=== PATIENT | female | born 1980 | race Caucasian/White ===

== ENCOUNTER → 2018-01-02 10:11 | Outpatient (CLI) | payer OTHER, SELFPAY ==
[2018-01-02 12:16] LABS: Add Manual Diff / Slide Review NO; Basophils Percent Auto 0.4 % (0-2); Eosinophils Percent Auto 1.9 % (2-4); Hematocrit 33.7 % (36-46); Hemoglobin 11.4 g/dL (12.0-16.0); Lymphocytes Percent Auto 14.3 % (25-40); Mean Corpuscular HGB Conc 33.7 % (30-36); Mean Corpuscular Hemoglobin 28.6 PG (26-34); Mean Corpuscular Volume 84.7 fL (80-100); Monocytes Percent Auto 5.6 % (3-14); Neutrophils Absolute Auto 6000 /uL (3000-5900); Neutrophils Percent Auto 77.8 % (50-75); Platelet Count 169 X10^3/uL (150-400); Red Blood Cell Count 3.98 X10^6/uL (4.0-5.2); Red Cell Distribution Width 13.7 % (11.6-14.8); White Blood Cell Count 7.8 X10^3/uL (4.5-11.0)
[2018-01-02 13:12] LABS: GTT (PREG) 1 Hour PP 50gm Dose 112 mg/dL (76-139)
[2018-01-02 14:28] LABS: Appearance Urine UA CLEAR; Bilirubin Urine UA NEGATIVE (NEGATIVE); Color Urine UA YELLOW; Glucose Urine UA NEGATIVE (Negative); Ketones Urine UA NEGATIVE (NEGATIVE); Leukocyte Esterase Urine UA NEGATIVE (NEGATIVE); Nitrite Urine UA NEGATIVE (NEGATIVE); Occult Blood Urine UA NEGATIVE (Negative); Protein Urine UA NEGATIVE (Negative); Urobilinogen Urine UA 0.2 E.U./dL (0.2)
[2018-01-02 14:37] LABS: Culture Indicated Urine Cult Not Indicated; Urine Comments Microscopic Normal
[2018-01-02 17:14] LABS: HIV 1 and 2 Antibody NEGATIVE (NEGATIVE); Hep C Virus Ab w/Reflex Quant NEGATIVE s/c (NEGATIVE); Hepatitis B Surface Antigen NEGATIVE s/c (NEGATIVE); Rubella Antibody IgG 18.3 IU/mL (>15)
[2018-01-04 14:41] LABS: HSV 2 IGG AB < 0.90 index (< 0.90); HSV1IGG < 0.90 index (< 0.90)
[2018-01-10 11:48] LABS: Rapid Plasma Reagin NON REACTIVE
== END ==
PROVIDERS: PCP Specialist; Visit Provider Specialist
DX: Z3A.26 26 weeks gestation of pregnancy (principal); Z34.82 Encounter for supervision of other normal pregnancy, second trimester
CPT/HCPCS: 36415; 80055; 82950; 86850; 86900; 86901

== ENCOUNTER → 2018-03-01 16:45 | Outpatient (CLI) | payer OTHER, SELFPAY ==
[2018-03-02 12:48] LABS: Strep Grp B PCR POS for Grp B Strep
== END ==
PROVIDERS: Family Provider Specialist; PCP Specialist; Visit Provider Specialist
DX: Z34.83 Encounter for supervision of other normal pregnancy, third trimester (principal); Z3A.36 36 weeks gestation of pregnancy
CPT/HCPCS: 87653

== ENCOUNTER 2018-03-29 11:50 | Outpatient (CLI) | payer OTHER, SELFPAY ==
--- NOTE | 2018-03-29 12:37 | PM.OBTRLD ---
Visit Information Visit Information Date of evaluation: 03/29/18 Primary OB Provider: Jenifer Dillon Reason for Evaluation: Yes non-stress test Evaluation Evaluation Baseline heart rate: 140 Variability: Moderate (11-25) monitor accelerations: Present monitor decelerations: Absent Contraction Frequency (minutes): 0 Category of Tracing: I Diagnosis, Plan/Disposition Final Diagnosis (1) 40 weeks gestation of : Current Visit: Yes Status: Acute (2) Encounter for supervision of other normal , third trimester: Current Visit: Yes Status: Acute Plan/Disposition Plan: Reactive nonstress test. Follow-up with OB provider in 4 days.
== END 2018-03-29 12:35 | disposition home or self-care (01) ==
LOC: OB 04-03 15:47
PROVIDERS: Family Provider Specialist; PCP Specialist; Visit Provider Specialist
DX: Z34.83 Encounter for supervision of other normal pregnancy, third trimester (principal); Z3A.40 40 weeks gestation of pregnancy
CPT/HCPCS: 59025; G0378; G0379

== ENCOUNTER 2018-04-04 14:20 | Outpatient (CLI) | payer OTHER, SELFPAY ==
--- NOTE | 2018-04-04 14:59 | P.TNLD_ITS ---
Visit Information Visit Information Date of evaluation: 04/04/18 Primary OB Provider: Jenifer Dillon On-call OB Provider: Jovanna Patino Reason for Evaluation: Yes non-stress test non-stress test reason: other ( postdates) Evaluation Evaluation Baseline heart rate: 140 Variability: Moderate (11-25) monitor accelerations: Present monitor decelerations: Absent Contraction Frequency (minutes): 6 Uterine Contraction Intensity: Mild Category of Tracing: I Diagnosis, Plan/Disposition Final Diagnosis (1) Post-dates : Current Visit: Yes Status: Acute Plan/Disposition Plan: D/C to home [facility] Follow up 4 days for repeat NST
== END 2018-04-04 15:05 | disposition home or self-care (01) ==
LOC: OB 04-05 14:40
PROVIDERS: Family Provider Specialist; PCP Specialist; Visit Provider Obstetrics & Gynecology
DX: O48.0 Post-term pregnancy (principal); Z3A.40 40 weeks gestation of pregnancy
CPT/HCPCS: 59025; G0378; G0379

== ENCOUNTER 2018-04-08 14:06 | Outpatient (CLI) | payer OTHER, SELFPAY ==
--- NOTE | 2018-04-09 04:41 | PM.OBTRLD ---
Visit Information Visit Information Date of evaluation: 04/08/18 Primary OB Provider: Jenifer Dillon On-call OB Provider: Jovanna Patino Reason for Evaluation: Yes non-stress test non-stress test reason: other (Postdates) Evaluation Evaluation Baseline heart rate: 135 Variability: Moderate (11-25) monitor accelerations: Present monitor decelerations: Absent Contraction Frequency (minutes): 8 Uterine Contraction Intensity: Mild Category of Tracing: I Diagnosis, Plan/Disposition Final Diagnosis (1) 41 weeks gestation of : Current Visit: No Status: Acute Plan/Disposition Plan: Follow up with Dr. Dillon 04/09/18 [facility]
--- NOTE | 2018-04-09 04:44 | P.TNLD_ITS ---
Visit Information Visit Information Date of evaluation: 04/08/18 Primary OB Provider: Jenifer Dillon On-call OB Provider: Jovanna Patino Reason for Evaluation: Yes non-stress test non-stress test reason: other ( Postdates) Evaluation Evaluation Baseline heart rate: 135 Variability: Moderate (11-25) monitor accelerations: Present monitor decelerations: Absent Contraction Frequency (minutes): 8 Uterine Contraction Intensity: Mild Category of Tracing: I Diagnosis, Plan/Disposition Final Diagnosis (1) 41 weeks gestation of : Current Visit: No Status: Acute Plan/Disposition Plan: Follow up with Dr. Dillon 04/09/18 [facility]
== END 2018-04-08 14:50 | disposition home or self-care (01) ==
LOC: OB 04-09 14:29
PROVIDERS: Family Provider Specialist; PCP Specialist; Visit Provider Obstetrics & Gynecology
DX: O48.0 Post-term pregnancy (principal); Z3A.41 41 weeks gestation of pregnancy
CPT/HCPCS: 59025; G0378; G0379

== ENCOUNTER 2018-04-10 07:48 | Inpatient (IN) | payer OTHER, SELFPAY ==
[2018-04-10] MEDS: PENICILLIN G POTASSIUM 5,000,000 UNIT in DEXTROSE 5% IN WATER 250 ML IV (09:45)
--- NOTE | 2018-04-10 09:51 | PM.OBHP.1 ---
OB HPI Date/Time Date of admission: 04/10/18 Date Patient Seen: 04/10/18 Time Patient Seen: 09:51 History of Present Condition Chief complaint: OBS : 5 Para: 3 Estimated Date of Delivery: 03/29/18 Estimated Gestational Age (weeks): 41 Narrative: Hernandez Patel is a 38 year old female admitted in early labor. History of Present care: good care Dating criteria: LMP confirmed by 1st trimester US Ultrasounds: normal mid trimester US Obstetrical complications: none Medical complications: none Preadmission Labs Blood type: O (+) positive -: Antibody screen: negative, GBS status: positive, HBsAG: negative, HIV: negative, HSV 1: negative, HSV 2: negative and RPR/VDLR: negative -: Chlamydia screen: not detected and Gonorrhea screen: not detected -: Rubella: immune HCAB: negative 1 hr GTT: 112 Prior (ies) History: 12/14/2012 41 weeks 8 lb 6 oz female 02/24/2014 40 weeks 8 lb 1 oz female 04/27/2016 39 weeks 8 lb 5 oz male 2014 D and C for blighted ovum Evaluation Evaluation Baseline heart rate: 150 Variability: Moderate (11-25) monitor accelerations: Present monitor decelerations: Absent Contraction Frequency (minutes): 5 Uterine Contraction Intensity: Moderate Category of Tracing: I Cervical dilation (cm): 5 Cervical effacement (%): 80 station: -2 PFSH Medical History Anxiety (Chronic) Surgical History H/O dilation and curettage (Resolved) H/O shoulder surgery (Resolved) Social History Smoking Status: Never smoker second hand exposure: No substance use type: does not use Meds Allergies Allergy/AdvReac Type Severity Reaction Status Date / Time hydrocodone [HYDROCODONE] Allergy Intermediate Unverified 11/22/17 12:36 Review of Systems Review of Systems Patient has been having regular strong contractions. No rupture of membranes. She has noted good movement. No signs or symptoms of preeclampsia. All systems reviewed & are unremarkable except as noted in HPI and below Exam Vital Signs (past 8 hours): Blood pressure 135/71, temperature 97.7?, a pulse of 97 HEENT exam within normal limits. Lungs are clear to auscultation and percussion. Heart is regular rate and rhythm no S3-S4 or murmurs. Abdomen is soft and gravid. Extremities without edema and nontender. Manual OB Exam: dilated 6, effaced 75% and station -2 Uterus Location (Fundal Height): 39 Presentation: vertex Estimated Weight (lbs): 9 Assessment and Plan (1) 41 weeks gestation of : Current visit: No Status: Acute (2) Encounter for supervision of other normal , third trimester: Current visit: No Status: Acute Plan: Plan: Patient will receive IV penicillin for positive group B strep culture. Anticipate vaginal delivery.
[2018-04-10 10:03] LABS: Add Manual Diff / Slide Review NO; Basophils Percent Auto 0.3 % (0-2); Eosinophils Percent Auto 0.5 % (2-4); Hematocrit 32.1 % (36-46); Hemoglobin 10.4 g/dL (12.0-16.0); Lymphocytes Percent Auto 9.4 % (25-40); Mean Corpuscular HGB Conc 32.6 % (30-36); Mean Corpuscular Hemoglobin 24.8 PG (26-34); Monocytes Percent Auto 5.4 % (3-14); Neutrophils Absolute Auto 9200 /uL (3000-5900); Neutrophils Percent Auto 84.4 % (50-75); Platelet Count 173 X10^3/uL (150-400); Red Blood Cell Count 4.22 X10^6/uL (4.0-5.2); Red Cell Distribution Width 15.5 % (11.6-14.8); White Blood Cell Count 10.9 X10^3/uL (4.5-11.0)
[2018-04-10 11:22] VITALS: BP 135/80
[2018-04-10] MEDS: IBUPROFEN 600 MG TABLET PO ×2 (13:00→19:53)
--- NOTE | 2018-04-10 13:08 | PM.OBPRVD ---
Delivery date: 04/10/18 Intrapartal events: None Induction method: none Delivery monitor: external FHT and external uterine Route of delivery: Laceration description: Perineal - 1st Degree Delivery repair: chromic (3-0) Estimated blood loss (mL): 200 Anesthesia type: None Narrative: Patient arrived on Labor and delivery in early labor. She received 1 dose of IV penicillin for positive group group B strep. She progressed normally and delivered spontaneously, over an intact perineum. The was placed on maternal abdomen and the cord was clamped after it stopped pulsating. The placenta delivered spontaneously, intact, with 3 vessels. There was no cervical or vaginal tears. There was a 1st degree perineal tear that was repaired with 3 0 chromic suture. Both infant and mother did well. [place] Baby 1: gender: Male Presentation: vertex position: Right Occiput Anterior Placenta delivery description: Spontaneous cord vessel description: 3 Vessels score (1 min): 8 score (5 min): 9 Narrative: 4780gm, 10# 8.6oz Plan for aftercare: Routine care.
[2018-04-10] MEDS: LANOLIN OINT 7 GM 1 APPLIC TOP (16:08)
[2018-04-10] MEDS: DERMOPLAST SPRAY 20% 60 ML 1 SPRAY TOP (16:09)
[2018-04-10 17:28] LABS: Hematocrit 26.7 % (36-46); Hemoglobin 8.7 g/dL (12.0-16.0)
[2018-04-11] MEDS: IBUPROFEN 600 MG TABLET PO ×2 (02:30→08:24)
[2018-04-11] MEDS: DOCUSATE 250 MG CAPSULE PO (08:24)
--- NOTE | 2018-04-11 08:50 | PM.OBDS.1 ---
Discharge Providers Date of admission: 04/10/18 07:48 Primary care physician: Jenifer Dillon MD Consults: 04/11/18 13:02 Consult to Brake Specialist Routine Comment: Discharge provider: Jenifer Dillon MD Discharge Date: 04/11/18 Summary Date Patient Seen: 04/11/18 Time Patient Seen: 08:50 Hospital Course: Patient arrived on Labor and delivery in early labor. She received IV antibiotics for positive group B strep culture. She had a spontaneous vaginal delivery. Both she and the baby did well . Patient denies any signs or symptoms of preeclampsia. She is tolerating a regular diet, urinating, ambulating well. Peripartum Data Infant Delivery Method: Natural Vaginal Laceration description: Perineal - 1st Degree Procedures: IV antibiotics, spontaneous vaginal delivery, repair of first-degree laceration. complications: none Home 1: Gender: Male Disposition of : home Discharge Diagnosis (1) Acute blood loss anemia: Status: Acute (2) Vaginal delivery: Status: Acute (3) 41 weeks gestation of : Status: Acute (4) Encounter for supervision of other normal , third trimester: Status: Acute Status at Discharge Functional status at discharge: independent ambulation Overall status at discharge: patient is progressing back to baseline Time Spent with Patient Total time spent providing and/or coordinating discharge services: Less than 30 minutes Objective Labs Result Diagrams: 04/10/18 17:19 Labs: Laboratory Results - last 24 hr 04/10/18 04/10/18 04/10/18 09:30 09:30 17:19 WBC 10.9 RBC 4.22 Hgb 10.4 L 8.7 L Hct 32.1 L 26.7 L MCV 76.0 L MCH 24.8 L MCHC 32.6 RDW 15.5 H Plt Count 173 Neut % (Auto) 84.4 H Lymph % (Auto) 9.4 L [place] % (Auto) 5.4 Eos % (Auto) 0.5 L Baso % (Auto) 0.3 Neut # (Auto) 9200 H Blood Type O Positive Antibody Screen Negative Discharge Plan Discharge Plan Patient Disposition: Home Discharge Med Rec/Prescriptions Prescriptions: New ibuprofen 600 mg Tablet 600 mg PO Q6HR PRN (Reason: Pain, Mild (1-3)) Qty: 30 RF: 0 docusate sodium 250 mg Capsule 250 mg PO DAILY Qty: 30 RF: 0 ferrous gluconate 324 mg (36 mg iron) tablet 324 mg PO DAILY Qty: 30 RF: 0 Continue PNV [id number]-ferrous fumarate-FA [] 28 mg iron- 800 mcg Tablet 1 tab PO DAILY RF: 0 Follow up/Referrals: Jenifer Dillon MD [Primary Care Provider] - 1 Month Provider Discharge Instructions Diet: Regular Skin/Wound/Dressing Care Report to your healthcare provider any signs of infection, such as:: chills, fever, increased pain and unusual drainage Discharge Data Primary Care Provider: Jenifer Dlilon Attending Provider: Jenifer Dillon Admit Date/Time: 04/10/18 07:48
[2018-04-11 10:45] VITALS: BP 116/78; PULSE 84; RESP 16; TEMP 36.5
== END 2018-04-11 13:55 | disposition home or self-care (01) | DRG 775 ==
PROVIDERS: Admitting Provider Specialist; PCP Specialist; Visit Provider Specialist
DX: O99.824 Streptococcus B carrier state complicating childbirth (principal); Z3A.41 41 weeks gestation of pregnancy; Z37.0 Single live birth; O70.0 First degree perineal laceration during delivery
CPT/HCPCS: 36415; 59050; 59400; 85014; 85018; 85025; 86850; 86900; 86901; G0379; J2540